=== PATIENT | male | born 1975 | race Caucasian/White ===

== ENCOUNTER 2018-08-18 20:18 | Emergency (ER) | payer BC, MEDICAID ==
[~2018-08-18] VITALS: Ht 167.6 cm; Wt 92.8 kg
[2018-08-18 20:29] VITALS: Ht 167.6 cm; Wt 92.8 kg
--- NOTE | 2018-08-18 21:59 | ERD ---
ER Documentation Chief Complaint Chief Complaint c/o blood in stool/diarrhea/abdominal pain x 2 days HPI Patient is a 42-year-old male with no medical problems who presents with rectal bleeding. The patient said that it started yesterday. He said that he noticed blood in the toilet bowl and he has been having blood every 30 minutes. He has never had this before. He has never had a colonoscopy. He has diffuse crampy abdominal pain as well. He is not on blood thinning medications. Upon review of old medical records this is the patient's third visit to the ER since 2007. The patient does not currently have a primary doctor. ROS All systems reviewed and are negative except as per history of present illness. Medications Home Meds No Active Prescriptions or Reported Meds Allergies Allergies: Coded Allergies: No Known Allergy (Unverified , 08/18/18) PMhx/Soc Medical and Surgical Hx: pt denies Medical Hx History of Surgery: Yes (L KNEE SURGERY ) Hx Alcohol Use: No Hx Substance Use: No Hx Tobacco Use: No Smoking Status: Never smoker FmHx Family History: diabetes Physical Exam Vitals Vital Signs Date Temp Pulse Resp B/P (MAP) Pulse Ox O2 O2 Flow FiO2 Time Delivery Rate 08/18/18 85 16 131/83 98 Room Air 22:17 (99) 08/18/18 99.9 92 18 141/66 97 20:29 (91) Physical Exam Const: No acute distress Head: Atraumatic Eyes: Normal Conjunctiva ENT: Normal External Ears, Nose and Mouth. Neck: Full range of motion. No meningismus. Resp: Clear to auscultation bilaterally Cardio: Regular rate and rhythm, no murmurs Abd: Soft, non tender, non distended. Normal bowel sounds Skin: No petechiae or rashes Back: No midline or flank tenderness Ext: No cyanosis, or edema Neur: Awake and alert Rectal: No signs of hemorrhoids or rectal bleeding Result Diagram: 08/18/18212408/18/182124 Results 24 hrs Laboratory Tests Test 08/18/18 21:25 White Blood Count 9.1 10^3/ul Red Blood Count 4.77 10^6/ul Hemoglobin 14.8 g/dl Hematocrit 45.3 % Mean Corpuscular Volume 95.0 fl Mean Corpuscular Hemoglobin 31.0 pg Mean Corpuscular Hemoglobin Concent 32.7 g/dl Red Cell Distribution Width 12.7 % Platelet Count 204 10^3/UL Mean Platelet Volume 8.9 fl Immature Granulocytes % 0.300 % Neutrophils % 70.8 % Lymphocytes % 18.8 % Monocytes % 8.8 % Eosinophils % 0.9 % Basophils % 0.4 % Nucleated Red Blood Cells % 0.0 /100WBC Immature Granulocytes # 0.030 10^3/ul Neutrophils # 6.4 10^3/ul Lymphocytes # 1.7 10^3/ul Monocytes # 0.8 10^3/ul Eosinophils # 0.1 10^3/ul Basophils # 0.0 10^3/ul Nucleated Red Blood Cells # 0.0 10^3/ul Urine Color YELLOW Urine Clarity SLIGHTLY CLOUDY Urine pH 5.0 Urine Specific [place] 1.024 Urine Ketones NEGATIVE mg/dL Urine Nitrite NEGATIVE mg/dL Urine Bilirubin NEGATIVE mg/dL Urine Urobilinogen NEGATIVE mg/dL Urine Leukocyte Esterase NEGATIVE [place]/ul Urine Microscopic RBC 4 /HPF Urine Microscopic WBC 2 /HPF Urine Mucus MANY /HPF Urine Hemoglobin 1+ mg/dL Urine Glucose NEGATIVE mg/dL Urine Total Protein NEGATIVE mg/dl Sodium Level 142 mmol/L Potassium Level 3.7 mmol/L Chloride Level 101 mmol/L Carbon Dioxide Level 25 mmol/L Anion Gap 16 Blood Urea Nitrogen 15 mg/dl Creatinine 0.73 mg/dl Est Glomerular Filtrat Rate mL/min > 60 mL/min Glucose Level 116 mg/dl Calcium Level 9.2 mg/dl Total Bilirubin 0.3 mg/dl Direct Bilirubin 0.00 mg/dl Indirect Bilirubin 0.3 mg/dl Aspartate Amino Transf (AST/SGOT) 24 IU/L Alanine Aminotransferase (ALT/SGPT) 22 IU/L Alkaline Phosphatase 64 IU/L Total Protein 7.7 g/dl Albumin 4.3 g/dl Globulin 3.40 g/dl Albumin/Globulin Ratio 1.26 Lipase 61 U/L Procedures/MDM Patient is a 42-year-old male who presents with rectal bleeding. The patient has a normal hemoglobin. I do not believe the patient requires further workup or admission to the hospital at this time. The patient is in a low risk GI bleed category. The patient can return for any worsening symptoms. The patient should follow-up with a primary doctor and with Dr. Gill from GI within 24-48 hours for reevaluation. Jalil-Blatchford Bleeding Score (GBS) from [email or web address] on 08/18/2018 All calculations should be rechecked by clinician prior to use RESULT SUMMARY: 0 points A GBS of 0 is a Low Risk GI bleed, and is highly sensitive (99.6% in a 2007 retrospective study) for predicting which patients did not require any medical intervention: blood transfusion, endoscopy, or surgery. This was confirmed in a 2009 [facility] study where patients with a score of 0 were actually discharged and had no GI bleeding mortality at 6 month followup INPUTS: Hemoglobin > 14.8 g/dL BUN > 15 mg/dL Initial systolic BP > 141 mm Hg Sex > 0 = Male Heart rate ?100 > 0 = No Melena present > 0 = No Recent syncope > 0 = No Hepatic disease history > 0 = No Cardiac failure present > 0 = No Departure Diagnosis: Primary Impression: Rectal bleed Condition: Fair Patient Instructions: Rectal Bleed, Stable Referrals: MARJAN GILL MD Additional Instructions: Call your primary care doctor TOMORROW for an appointment during the next 1-2 days.See the doctor sooner or return here if your condition worsens before your appointment time. NELLY NICOLE MD Aug 18, 2018 21:59
[2018-08-18 22:17] VITALS: BP 131/83; PULSE 85; RESP 16
== END 2018-08-18 22:31 | disposition home or self-care (01) ==
LOC: E/R 20:18
DX: K62.5 Hemorrhage of anus and rectum (principal)
CPT/HCPCS: 36415; 80053; 81001; 83690; 85025; Z7502; 99283